=== PATIENT | male | born 2000 | race Caucasian/White ===

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

== ENCOUNTER 2022-02-20 18:56 | Emergency (ER) | payer BC ==
[~2022-02-20] VITALS: Ht 177 cm; Wt 63.0 kg
[~2022-02-20 18:56] MED LIST changes: +AZIT250T12 PO; +OXYM30SP25 NS; +PRD20T PO
--- NOTE | 2022-02-20 19:20 | ED Abdominal Pain ---
General Chief Complaint: Abdominal/GI Problems Stated Complaint: VOMITING - ABD PAIN Source of Information: Patient Exam Limitations: No Limitations History of Present Illness Date Seen by Provider: Feb 20, 2022 Time Seen by Provider: 19:10 Initial Comments Patient is a 21-year-old male who presents to the emergency department with his mom today by private vehicle chief complaint of diffuse abdominal pain, nausea and vomiting. Symptoms started suddenly approximately 2 hours prior to arrival. He has not taken any medications to improve his symptoms. 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 He states he has been drinking Powerade's and water. He is urinated more than 2 or 3 times today. He describes the pain as an ache. It is mid abdomen. Nothing makes it any better or worse. He states at the time of onset of pain he started having lots of diarrhea. The abdominal pain does not radiate down into his scrotum. He appears to be in moderate distress, breathing heavily similar to management coordinator small respirations. Bedside blood sugar is 81. No other complaints of recent illness, fevers, chills. He is COVID vaccinated x1, did not receive his second shot. No prior abdominal surgeries. No allergies to medications. All other review of systems reviewed and negative except as stated Timing/Duration: 1-3 Hours (2 hr) Severity/Quality: Severe, Aching Location: Generalized Abdomen Radiation: No Radiation Activities at Onset: None Associated Symptoms: Nausea/Vomiting, Other (diarrhea) Allergies and Home Medications Allergies Coded Allergies: No Known Drug Allergies (Verified , 04/30/08) Patient Home Medication List Home Medication List Reviewed: Yes Ondansetron (Ondansetron Odt) 8 Mg Tab.rapdis, 8 MG PO Q8H PRN for nausea Prescribed by: KAREN VILLANUEVA on 02/20/222134 Oxymetazoline HCl (Afrin) 30 Ml [place], 30 ML NS BID PRN for CONGESTION Prescribed by: VALENTINE CREWS on 06/11/202209 Prednisone (Prednisone) 20 Mg Tab, 40 MG PO DAILY Prescribed by: VALENTINE CREWS on 06/11/202209 Review of Systems Review of Systems Constitutional: see HPI EENTM: No Symptoms Reported Respiratory: Shortness of Air Cardiovascular: No Symptoms Reported Gastrointestinal: Abdominal Pain, Nausea, Vomiting Genitourinary: No Symptoms Reported Musculoskeletal: no symptoms reported Skin: no symptoms reported Psychiatric/Neurological: No Symptoms Reported All Other Systems Reviewed Negative Unless Noted: Yes Past Glyazhu-Cngomv-Vzmuct Hx Immunizations Up To Date Tetanus Booster (TDap): Unknown Seasonal Allergies Seasonal Allergies: No Past Medical History Surgeries: No Respiratory: No Cardiac: No Neurological: No Reproductive Disorders: No Genitourinary: No Gastrointestinal: No Musculoskeletal: No Endocrine: No HEENT: No Cancer: No Psychosocial: No Integumentary: No Blood Disorders: No Physical Exam Vital Signs Vital Signs - First Documented 02/20/22 19:10 Temp 36.5 Pulse 82 Resp 20 B/P (MAP) 125/73 (90) Pulse Ox 100 O2 Delivery Room Air Capillary Refill : Height/Weight/BMI Height: 5'10.00" Weight: 130lbs. oz. 58.824500yr; 18.00 BMI Method:Stated General Appearance: WD/WN HEENT: PERRL/EOMI Neck: normal inspection Respiratory: lungs clear, normal breath sounds, no respiratory distress, no accessory muscle use, other (tachypneic) Cardiovascular: regular rate, rhythm Gastrointestinal: normal bowel sounds, guarding (voluntary), tenderness (diffuse tenderness without rebound) Extremities: normal range of motion, non-tender, normal inspection, no pedal edema, normal capillary refill Neurologic/Psychiatric: no motor/sensory deficits, alert, normal mood/affect, oriented x 3 Skin: normal color, warm/dry Progress/Results/Core Measures Results/Orders Lab Results Laboratory Tests Test 02/20/22 19:10 02/20/22 19:18 02/20/22 19:21 02/20/22 19:30 Range/Units White Blood Count 12.8 H 4.3-11.0 10^3/uL Red Blood Count 5.25 4.30-5.52 10^6/uL Hemoglobin 15.6 13.3-17.7 g/dL Hematocrit 47 40-54 % Mean Corpuscular Volume 90 80-99 fL Mean Corpuscular Hemoglobin 30 25-34 pg Mean Corpuscular Hemoglobin Concent 33 32-36 g/dL Red Cell Distribution Width 12.1 10.0-14.5 % Platelet Count 374 130-400 10^3/uL Mean Platelet Volume 9.5 9.0-12.2 fL Immature Granulocyte % (Auto) 0 % Neutrophils (%) (Auto) 87 H 42-75 % Lymphocytes (%) (Auto) 5 L 12-44 % Monocytes (%) (Auto) 6 0-12 % Eosinophils (%) (Auto) 1 0-10 % Basophils (%) (Auto) 0 0-10 % Neutrophils # (Auto) 11.1 H 1.8-7.8 10^3/uL Lymphocytes # (Auto) 0.7 L 1.0-4.0 10^3/uL Monocytes # (Auto) 0.8 0.0-1.0 10^3/uL Eosinophils # (Auto) 0.1 0.0-0.3 10^3/uL Basophils # (Auto) 0.0 0.0-0.1 10^3/uL Immature Granulocyte # (Auto) 0.1 0.0-0.1 10^3/uL Neutrophils % (Manual) 84 % Lymphocytes % (Manual) 6 % Monocytes % (Manual) 9 % Band Neutrophils 1 % Blood Morphology Comment NORMAL Sodium Level 145 135-145 MMOL/L Potassium Level 4.2 3.6-5.0 MMOL/L Chloride Level 106 98-107 MMOL/L Carbon Dioxide Level 23 21-32 MMOL/L Anion Gap 16 H 5-14 MMOL/L Blood Urea Nitrogen 16 7-18 MG/DL Creatinine 0.99 0.60-1.30 MG/DL Estimat Glomerular Filtration Rate 112 BUN/Creatinine Ratio 16 Glucose Level 93 70-105 MG/DL Calcium Level 10.8 H 8.5-10.1 MG/DL Corrected Calcium 8.5-10.1 MG/DL Total Bilirubin 0.6 0.1-1.0 MG/DL Aspartate Amino Transf (AST/SGOT) 22 5-34 U/L Alanine Aminotransferase (ALT/SGPT) 18 0-55 U/L Alkaline Phosphatase 115 40-136 U/L Total Creatine Kinase 122 30-200 U/L Total Protein 9.0 H 6.4-8.2 GM/DL Albumin 5.3 H 3.2-4.5 GM/DL Glucometer 81 70-110 MG/DL SARS-CoV-2 RNA (RT-PCR) Not Detected Not Detecte Urine Color YELLOW Urine Clarity CLEAR Urine pH 6.0 5-9 Urine Specific [place] 1.025 H 1.016-1.022 Urine Protein NEGATIVE NEGATIVE Urine Glucose (UA) NEGATIVE NEGATIVE Urine Ketones 3+ H NEGATIVE Urine Nitrite NEGATIVE NEGATIVE Urine Bilirubin NEGATIVE NEGATIVE Urine Urobilinogen 0.2 < = 1.0 MG/DL Urine Leukocyte Esterase NEGATIVE NEGATIVE Urine RBC (Auto) NEGATIVE NEGATIVE Urine RBC RARE /HPF Urine WBC RARE /HPF Urine Squamous Epithelial Cells 0-2 /HPF Urine Crystals NONE /LPF Urine Bacteria FEW H /HPF Urine Casts NONE /LPF Urine Mucus LARGE H /LPF Urine Culture Indicated YES My Orders Orders - KAREN VILLANUEVA MD Covid 19 Inhouse Test (02/20/22 19:20) Ed Iv/Invasive Line Start (02/20/22 19:20) Cbc With Automated Diff (02/20/22 19:20) Comprehensive Metabolic Panel (02/20/22 19:20) Ua Culture If Indicated (02/20/22 19:20) Creatine Kinase (02/20/22 19:20) Isolation Central Supply Req (02/20/22 19:20) Ns Iv 1000 Ml (Sodium Chloride 0.9%) (02/20/22 19:30) Ondansetron Injection (Zofran Injectio (02/20/22 19:30) Fentanyl Inj (Sublimaze Injection) (02/20/22 19:30) Manual Differential (02/20/22 19:10) Urine Culture (02/20/22 19:30) Ct Abd/Pelv W (Appendicitis) (02/20/22 20:02) Iohexol Injection (Omnipaque 350 Mg/Ml 1 (02/20/22 20:45) Received Contrast (Hold Metformin- Contr (02/20/22 20:45) Ns (Ivpb) (Sodium Chloride 0.9% Ivpb Bag (02/20/22 20:45) Promethazine Injection (Phenergan Injec (02/20/22 21:30) Ns Iv 1000 Ml (Sodium Chloride 0.9%) (02/20/22 21:30) Ketorolac Injection (Toradol Injection) (02/20/22 21:30) Medications Given in ED Current Medications Medications Dose Ordered Sig/Nichelle Route Start Time Stop Time Status Last Admin Dose Admin Iohexol 100 ml ONCE ONCE IV 02/20/22 20:45 02/20/22 20:46 DC 02/20/22 20:35 84 ML Ketorolac Tromethamine 30 mg ONCE ONCE IVP 02/20/22 21:30 02/20/22 21:32 DC 02/20/22 21:32 30 MG Ondansetron HCl 8 mg ONCE ONCE IVP 02/20/22 19:30 02/20/22 19:31 DC 02/20/22 19:40 8 MG Promethazine HCl 25 mg ONCE ONCE IVP 02/20/22 21:30 02/20/22 21:32 DC 02/20/22 21:32 25 MG Sodium Chloride 100 ml ONCE ONCE IV 02/20/22 20:45 02/20/22 20:46 DC 02/20/22 20:35 80 ML Vital Signs/I&O 02/20/22 02/20/22 19:10 22:07 Temp 36.5 36.5 Pulse 82 82 Resp 20 20 B/P (MAP) 125/73 (90) 125/73 Pulse Ox 100 100 O2 Delivery Room Air Room Air Progress Progress Note : Time: 21:33 Progress Note Patient reevaluated after IV fluids and Zofran. He states that he had a return of nausea after trying to sip on some water. We will give him some Phenergan an d a second liter of normal saline as well as some IV Toradol. His CT reflects acute gastroenteritis type picture versus ileus. I have recommended clear liquids over the next couple of days. Return precautions will be provided. I reviewed all of his labs and imaging with him and his mom who is at the bedside. Diagnostic Imaging Diagonstic Imaging: CT Comments [facility], [place] NAME: VIVEK MALDONADO [facility] REC#: [id number] PT STATUS: REG ER : 2000 PHYSICIAN: KAREN VILLANUEVA MD ADMIT DATE: 02/20/22/ER Draft Date of Exam:02/20/22 CT ABD/PELV W (APPENDICITIS) INDICATION: Right lower quadrant abdominal pain. TECHNIQUE: Multiple contiguous axial images were obtained through the abdomen and pelvis after the administration of intravenous contrast. All CT scans use one or more of the following dose optimizing techniques: automated exposure control, MA and/or KvP adjustment based on patient size and exam type or iterative reconstruction. COMPARISON made with 08/10/2016 The visualized portions of the lung bases are clear. There is no pleural fluid collection. There is no free intraperitoneal air. The liver shows no focal lesion. The gallbladder appears normal. The spleen, adrenals, and pancreas appear normal. The kidneys bilaterally appear normal. There is no retroperitoneal mass or adenopathy. There is no ascites or abscess. The appendix is not visualized but there is no inflammatory reaction in its expected location. There is a diffuse fluid-filled appearance of the small bowel with some fluid in the colon, as well. The findings may represent gastroenteritis or ileus. IMPRESSION: Diffuse fluid-filled large and small bowel loops without significant dilatation. The findings may represent gastroenteritis or ileus. Appendix is not visualized but there is no inflammatory reaction at its expected location. There is no abscess or other abnormal finding. Dictated on workstation # [id number] Dict: 02/20/222046 Trans: 02/20/222054 [facility] [id number] Interpreted by: YARITZA KRISHNAMURTHY MD Electronically signed by: Departure Impression Primary Impression: Abdominal pain Qualified Codes: R10.84 - Generalized abdominal pain Additional Impression: Gastroenteritis Disposition: 01 HOME, SELF-CARE Condition: Improved Departure-Patient Inst. Decision time for Depature: 21:33 Referrals: VICENTA PALACIOS DO (PCP/Family) Primary Care Physician Patient Instructions: Abdominal Pain, Adult ED, Viral Gastroenteritis, Adult (DC) Add. Discharge Instructions: Clear liquids over the next 24 to 48 hours. Zofran 8 mg every 8 hours as needed for nausea. Generic ibuprofen or Advil/Motrin, 3 to 4 tablets every 8 hours as needed for abdominal cramping/pain. Return to the emergency department if you develop a fever, worsening abdominal pain, vomiting, bloody stools or any other emergent, concerning symptoms. Please follow-up with your primary care physician. Scripts Ondansetron (Ondansetron Odt) 8 Mg Tab.rapdis 8 MG PO Q8H PRN for nausea, #15 TAB Prov: KAREN VILLANUEVA MD 02/20/22 Copy Copies To 1: VICENTA PALACIOS KATHRYN M MD Feb 20, 2022 19:20
[2022-02-20] MEDS ORDERED: ONDANSETRON 4 MG/2 ML (SDV) Z0FRAN IVP ONE (19:30)
[2022-02-20] MEDS ORDERED: fentaNYL INJ 100 MCG/2 ML AMP IVP ONE (19:30)
[2022-02-20] MEDS ORDERED: NS IV 1000 ML 1,000 ML IV SCH ×2 (19:30→21:30)
[2022-02-20 19:36] LABS: BILIRUBIN,URINE NEGATIVE (NEGATIVE); CLARITY,URINE CLEAR; COLOR,URINE YELLOW; GLUCOSE, URINE (UA) NEGATIVE (NEGATIVE); KETONES,URINE 3+ (NEGATIVE); LEUKOCYTE ESTERASE ,URINE NEGATIVE (NEGATIVE); NITRITE,URINE NEGATIVE (NEGATIVE); PROTEIN,URINE NEGATIVE (NEGATIVE)
[2022-02-20 19:47] LABS: BASOPHILS % (AUTO) 0 % (0-10); EOSINOPHILS # (AUTO) 0.1 10^3/uL (0.0-0.3); EOSINOPHILS % (AUTO) 1 % (0-10); HEMATOCRIT 47 % (40-54); HEMOGLOBIN 15.6 g/dL (13.3-17.7); LYMPHOCYTES # (AUTO) 0.7 10^3/uL (1.0-4.0); LYMPHOCYTES % (AUTO) 5 % (12-44); MEAN CORPUSCULAR HEMOGLOBIN 30 pg (25-34); MEAN CORPUSCULAR HGB CONC 33 g/dL (32-36); MEAN CORPUSCULAR VOLUME 90 fL (80-99); MEAN PLATELET VOLUME 9.5 fL (9.0-12.2); MONOCYTES # (AUTO) 0.8 10^3/uL (0.0-1.0); MONOCYTES % (AUTO) 6 % (0-12); NEUTROPHILS # (AUTO) 11.1 10^3/uL (1.8-7.8); NEUTROPHILS % (AUTO) 87 % (42-75); PLATELET COUNT 374 10^3/uL (130-400); WHITE BLOOD COUNT 12.8 10^3/uL (4.3-11.0)
[2022-02-20 19:56] LABS: BACTERIA,URINE FEW /HPF; RBC,URINE RARE /HPF; SQUAMOUS EPITHELIAL CELL,UR 0-2 /HPF; WBC,URINE RARE /HPF
[2022-02-20 20:00] LABS: ALANINE AMINOTRANSFERASE 18 U/L (0-55); ALBUMIN 5.3 GM/DL (3.2-4.5); ALKALINE PHOSPHATASE 115 U/L (40-136); BILIRUBIN,TOTAL 0.6 MG/DL (0.1-1.0); BUN/CREATININE RATIO 16; CALCIUM 10.8 MG/DL (8.5-10.1); CARBON DIOXIDE 23 MMOL/L (21-32); CHLORIDE 106 MMOL/L (98-107); CREATINE KINASE 122 U/L (30-200); CREATININE SERUM 0.99 MG/DL (0.60-1.30); GFR ESTIMATED 112; GLUCOSE 93 MG/DL (70-105); POTASSIUM 4.2 MMOL/L (3.6-5.0); SODIUM 145 MMOL/L (135-145)
[2022-02-20] MEDS ORDERED: IOHEXOL 350 MG/ML 100 ML (OMNIPAQUE 350) VIAL IV ONE (20:45)
[2022-02-20] MEDS ORDERED: HOLD METFORMIN - RECEIVED CONTRAST 20 ML VIAL IV SCH (20:45)
[2022-02-20] MEDS ORDERED: NS 100 ML (IVPB) BAG IV ONE (20:45)
[2022-02-20 20:48] LABS: BAND NEUTROPHILS 1 %; LYMPHOCYTES % (MANUAL) 6 %; MONOCYTES % (MANUAL) 9 %; NEUTROPHILS % (MANUAL) 84 %
[2022-02-20 20:49] LABS: RBC MORPH NORMAL
--- NOTE | 2022-02-20 20:56 | Diagnostic Imaging Report ---
INDICATION: Right lower quadrant abdominal pain. TECHNIQUE: Multiple contiguous axial images were obtained through the abdomen and pelvis after the administration of intravenous contrast. All CT scans use one or more of the following dose optimizing techniques: automated exposure control, MA and/or KvP adjustment based on patient size and exam type or iterative reconstruction. COMPARISON made with 08/10/2016 The visualized portions of the lung bases are clear. There is no pleural fluid collection. There is no free intraperitoneal air. The liver shows no focal lesion. The gallbladder appears normal. The spleen, adrenals, and pancreas appear normal. The kidneys bilaterally appear normal. There is no retroperitoneal mass or adenopathy. There is no ascites or abscess. The appendix is not visualized but there is no inflammatory reaction in its expected location. There is a diffuse fluid-filled appearance of the small bowel with some fluid in the colon, as well. The findings may represent gastroenteritis or ileus. IMPRESSION: Diffuse fluid-filled large and small bowel loops without significant dilatation. The findings may represent gastroenteritis or ileus. Appendix is not visualized but there is no inflammatory reaction at its expected location. There is no abscess or other abnormal finding. Dictated by: Dictated on workstation # [id number]
[2022-02-20] MEDS ORDERED: PROMETHAZINE INJ 25 MG/ML (PHENERGAN) AMP IVP ONE (21:30)
[2022-02-20] MEDS ORDERED: KETOROLAC 30 MG/ML VIAL IVP ONE (21:30)
[2022-02-20] MEDS ORDERED: ONDA8TAB13 PO (21:35)
[2022-02-20 22:07] VITALS: BP 125/73
== END 2022-02-20 22:07 | disposition home or self-care (01) ==
LOC: EDUNIT# 18:56 → ER 18:57
DX: K52.9 Noninfective gastroenteritis and colitis, unspecified (principal); Z20.822 Contact with and (suspected) exposure to COVID-19; Z28.311 Partially vaccinated for COVID-19
CPT/HCPCS: 36415; 74177; 80053; 81000; 82550; 82947; 85007; 85027; 87088; 87636